=== PATIENT | female | born 1940 | race Caucasian/White ===

== ENCOUNTER 2018-04-29 14:17 | Emergency (ER) | payer MEDICARE, OTHER ==
[2018-04-29] MEDS ORDERED: ASPIRIN 325 MG TAB PO (14:55)
[2018-04-29] MEDS ORDERED: LORAZEPAM 2 MG INJ IV ×2 (15:00→18:30)
[2018-04-29] MEDS: CEFEPIME 2GM/50 ML (PMX) 50 ML IVPB (15:54)
[2018-04-29 15:59] LABS: ADD MAN DIFF? NO
[2018-04-29 16:00] LABS: BASOPHILS % 0.3 % (0.0-2.0); EOSINOPHILS % 0.2 % (0.0-7.0); HEMOGLOBIN 12.6 g/dl (12.0-16.0); LYMPHOCYTES # 0.7 10^3/ul (0.8-2.9); LYMPHOCYTES % 11.4 % (15.0-51.0); MEAN CORPUSCULAR HEMOGLOBIN 28.9 pg (29.0-33.0); MEAN CORPUSCULAR HGB CONC 29.3 g/dl (32.0-37.0); MEAN CORPUSCULAR VOLUME 98.6 fl (82.0-101.0); MEAN PLATELET VOLUME 10.1 fl (7.4-10.4); MONOCYTE # 0.7 10^3/ul (0.3-0.9); MONOCYTES % 11.3 % (0.0-11.0); NEUTROPHIL # 4.5 10^3/ul (1.6-7.5); NEUTROPHILS % 76.3 % (39.0-77.0); PLATELET COUNT 394 10^3/UL (140-415); RED BLOOD COUNT 4.36 10^6/ul (4.20-5.40); RED CELL DISTRIBUTION WIDTH 15.4 % (11.5-14.5)
[2018-04-29 16:00] LABS: WHITE BLOOD COUNT 5.9 10^3/ul (4.8-10.8)
[2018-04-29] MEDS: VANCOMYCIN 1 GM (PMX) 250 ML IVPB (16:15)
[2018-04-29 16:16] LABS: LACTIC ACID 0.9 mmol/L (0.5-2.0)
[2018-04-29 16:20] LABS: INR 0.87; PARTIAL THROMBOPLASTIN TIME 26.4 Sec (25.0-35.0); PROTIME 11.9 Sec (11.9-14.9); PT RATIO 0.9
[2018-04-29 16:22] LABS: ALANINE AMINOTRANSFERASE 29 IU/L (13-69); ALBUMIN 3.5 g/dl (3.3-4.9); ALBUMIN/GLOBULIN RATIO 1.06; ALKALINE PHOSPHATASE 116 IU/L (42-121); ANION GAP 11 (8-16); ASPARTATE AMINO TRANSFERASE 48 IU/L (15-46); BILIRUBIN,INDIRECT 0.1 mg/dl (0-1.1); BILIRUBIN,TOTAL 0.1 mg/dl (0.2-1.3); BLOOD UREA NITROGEN 50 mg/dl (7-20); CALCIUM 8.8 mg/dl (8.4-10.2); CARBON DIOXIDE 33 mmol/L (21-31); CHLORIDE 107 mmol/L (97-110); CREATININE 0.93 mg/dl (0.44-1.00); GLUCOSE 114 mg/dl (70-220); SODIUM 146 mmol/L (135-144); TOTAL PROTEIN 6.8 g/dl (6.1-8.1)
[2018-04-29 16:33] LABS: TROPONIN-I < 0.012 ng/ml (0.000-0.120)
[2018-04-29] MEDS ORDERED: morphine 4 MG/ML VIAL IV ×2 (18:07→18:30)
[2018-04-29] MEDS ORDERED: ONDANSETRON 4 MG INJ IV (18:30)
[2018-04-29] MEDS ORDERED: ACETAMINOPHEN 325 MG TAB PO (18:30)
== END 2018-04-29 22:10 | disposition expired ==
LOC: E/R 22:10
DX: J96.01 Acute respiratory failure with hypoxia (principal); J96.02 Acute respiratory failure with hypercapnia; C79.81 Secondary malignant neoplasm of breast; J90 Pleural effusion, not elsewhere classified; I11.0 Hypertensive heart disease with heart failure; I50.9 Heart failure, unspecified; Z51.5 Encounter for palliative care; Z66 Do not resuscitate
CPT/HCPCS: 36415; 71045; 80053; 82962; 83605; 84484; 85025; 85610; 85730; 87040; 93005; 96365; 96366; 96368; 99285-25